=== PATIENT | male | born 2000 ===

== ENCOUNTER → 2019-10-26 | Outpatient (CLI) | payer OTHER ==
[2019-10-26 19:58] LABS: CHOL/HDL RATIO 3.4; Cholesterol 155 mg/dL (50-200); HDL Cholesterol 45 mg/dL (>39); LDL Direct Measurement 87 mg/dL (0-130); Low Density Lipoprotein Chol 92 mg/dL (0-110); Triglycerides 89 mg/dL (30-140); Very Low Density Lipoprot Chol 17 mg/dL (6-28)
== END | disposition home or self-care (01) ==
LOC: LAB SHORT 18:36 → LAB 18:36
PROVIDERS: Nurse Practitioner Family
DX: Z00.00 Encounter for general adult medical examination without abnormal findings (principal)
CPT/HCPCS: 80061; 83721